=== PATIENT | male | born 1965 | race Caucasian/White ===

== ENCOUNTER 2023-12-07 08:50 | Outpatient (REF) | payer BC, SELFPAY ==
--- NOTE | ~2023-12-07 | XR_ITS ---
EXAMINATION: XR CERVICAL SPINE CLINICAL INFORMATION: Cervicalgia COMPARISON: None available. TECHNIQUE: 5 views of the cervical spine including lateral flexion and extension views were obtained. FINDINGS: The bones are diffusely demineralized. C7 is obscured on the lateral views by the soft tissues of the patient's shoulder. C7 is partially seen on the Swimmer's view. There is no fracture. Prevertebral soft tissues are within normal limits. There is straightening of the usual cervical lordosis which can be seen with muscle spasm or be due to patient positioning. Endplate disc spacer devices are seen at C5-C6 and C6-C7. The hardware appears intact. There is no subluxation from C2 through C6. There is no change in alignment with flexion and extension. XR/XR cervical spine 4V IMPRESSION: 1. Postsurgical changes at C5-C6 and C6-C7. 2. Straightening of the usual cervical lordosis which can be seen with muscle spasm or be due to patient positioning.
== END 2023-12-07 08:51 | disposition home or self-care (01) ==
LOC: HO.HOSX 08:50
PROVIDERS: PCP Internal Medicine Geriatric Medicine; Visit Provider Physician Assistant
DX: M54.2 Cervicalgia (principal)
CPT/HCPCS: 72050

== ENCOUNTER 2023-12-07 08:50 | Outpatient (AMB) | payer BC, SELFPAY ==
--- NOTE | 2023-12-07 09:00 | HO.SPINEOV ---
Intake Visit Reasons: Neck and Numbness on both arms Intake Note: Mr. Andersen is here today c/o neck and numbness on both arms [employer] Specialist Required: No Allergies No Known Allergies Allergy (Verified 12/07/23 09:02) Assessment & Plan Assessment & Plan (1) Neck pain: Code(s): M54.2 - Cervicalgia Category: Medical Plan Mr Andersen is today. We did a an artificial disc at C5-6, C6-7 2020. He reports that initially after surgery he was doing well. Progressively over time however he is noticed to symptoms that seem to be bothering him. The 1st is a low cervical posterior neck pain that seems to be aggravated with activity. It does require him to take Motrin/Advil on a regular basis. When he is golfing in particular during the golf season he notices after a round he will have significant neck pain the next day. Once he stops golfing it seems to go away with the exception of when he is doing other strenuous activities. He did not have this initially after surgery and because of the progression, he wanted to get it looked into. The 2nd symptom is numbness in his hands when he wakes up in the morning. He feels as though it starts from the neck and radiates down like a buzzing feeling. Denies any loss of strength, muscle loss, fine motor loss etc.. He is here today in follow-up with an MRI done at [facility]. Past medical history: He has diabetic and had a neck surgery but other than that he tells me He is reasonably healthy his A1c is well controlled. medications: He takes metformin and Advil Social history: He is retired, does not smoke Allergies: No known drug allergies Physical exam: He is awake alert oriented no acute distress, he has full strength of bilateral upper extremities with normal reflexes. Imaging: There has an MRI done at [facility] with significant artifact from the artificial discs, there appears to be some moderate foraminal stenosis at C6-7 on the right and C5-6 on the left. Appears similar to what he had before surgery. I did flexion-extension x-rays here in the office today, and on the lateral views it appears as though the C5-6 disc arthroplasty has anterior bridging osteophytes on the front suggesting that that level has fused. It does not move with flexion and Angst extension. C6-7 however looks like it has retained its natural mobility. Impression: 58-year-old male following up with us almost 3 years out from his C5-6, C6-7 total disc arthroplasty, had been doing well but has developed some neck pain over time with activity, specifically golfing. He also reports that he has some tingling of his hands in the morning but seems to go away fairly quickly. Overall things look reassuring, despite the C5-6 disc arthroplasty looking like it has fused, compared to his preoperative films done in 2020 it does not look like he is developed any adjacent segment disease and the C6-7 disc implant looks as though it is appropriately mobile. I do not think there is any role for surgery here. There is certainly no reason for him to stop doing any of the activities he enjoys. He can just take Advil or Motrin if needed. I do not think there is a role for physical therapy. This may just be something he lives with or it may pass on its own. We would be happy to see him back down the road if something changes. Total amount of time spent in this visit was 20 minutes in discussion of symptoms, cervical MRI and x-ray imaging results and subsequent plan of care Ronnie Hawkins MD,PhD [facility] Orders: Orders XR cervical spine 4V Today M54.2 - Cervicalgia Coding Level of Care Code Est Pt Level 3 (06740) Diagnoses Neck pain M54.2
== END 2023-12-07 09:23 | disposition home or self-care (01) ==
PROVIDERS: PCP Internal Medicine Geriatric Medicine; Visit Provider Physician Assistant
DX: M54.2 Cervicalgia (principal)
CPT/HCPCS: 99213